=== PATIENT | male | born 1965 | race Two or more races ===

== ENCOUNTER 2024-06-08 14:23 | Emergency (ER) | payer OTHER ==
[~2024-06-08] VITALS: Ht 167.6 cm; Wt 77.1 kg
[2024-06-08] MEDS ORDERED: METFORMIN HCL500 M3 PO (14:31)
[2024-06-08] MEDS ORDERED: RINGERS SOLUTION,LACTATED 1,000 ML IV STA (17:53)
[2024-06-08] MEDS ORDERED: METOCLOPRAMIDE HCL 5 MG/ML VIAL IM STA ×2 (17:54→20:39)
[2024-06-08] MEDS ORDERED: MECLIZINE HCL 25 MG TABLET PO STA (17:55)
[2024-06-08] MEDS ORDERED: INSULIN REGULAR, HUMAN 1,000 UNIT/10 ML UNITS IV STA (17:56)
[2024-06-08] MEDS ORDERED: INSULIN REGULAR, HUMAN 1,000 UNIT/10 ML UNITS SUBCUTANEO STA ×3 (17:56→20:39)
[2024-06-08] MEDS ORDERED: METOCLOPRAMIDE HCL 5 MG/ML VIAL ONE ×2 (18:01→21:16)
[2024-06-08] MEDS ORDERED: MECLIZINE HCL 25 MG TABLET PO ONE (18:01)
[2024-06-08] MEDS ORDERED: INSULIN NPH HUMAN ISOPHANE 1,000 UNITS/10 ML UNITS SUBCUTANEO ONE (18:03)
[2024-06-08 18:27] LABS: HEMATOCRIT 46.2 % (39.0-48.0); HEMOGLOBIN 16.4 g/dL (13-16.00); MEAN CELL VOLUME 81.8 fL (80.0-100.00); MEAN CORPUSCULAR HGB CONC 35.5 g/dl (32.0-36.0); PLATELET COUNT 266 K/uL (150-450); RED BLOOD COUNT 5.65 M/uL (4.00-6.00)
[2024-06-08 18:45] LABS: ALBUMIN 3.8 gm/dL (3.4-5.0); BILIRUBIN TOTAL 0.58 mg/dL (0.3-1.2); CALCIUM 9.2 mg/dL (8.5-10.1); CREATININE SERUM 1.11 mg/dL (0.70-1.30); GFR 68.04; POTASSIUM 4.2 mEq/L (3.5-5.1)
[2024-06-08 18:48] LABS: proBNP 24 pg/mL (0-56.7)
[2024-06-08 18:54] LABS: TROPONIN I hs < 3.0 PG/ML (42.2-82.3)
[2024-06-08 19:04] LABS: INR 1.02; PARTIAL THROMBOPLASTIN TIME 27.5 SECONDS (22.0-34.0); PROTHROMBIN TIME 10.7 SECONDS (9.0-11.5)
[2024-06-08 19:08] LABS: GLOBULINA 5.7 G/DL (2.4-3.5); TOTAL PROTEIN 9.5 gm/dL (6.4-8.2)
[2024-06-08 19:17] LABS: URINE APPEARANCE Clear; URINE BILIRRUBIN Negative (NEGATIVE); URINE BLOOD Negative; URINE COLOR Yellow; URINE LEUKOCYTE Negative; URINE NITRATE Negative; URINE PROTEIN Negative (NEGATIVE); URINE UROBILINOGEN 0.2 E.U./dl
[2024-06-08 19:21] LABS: URINE BACTERIA 7.5 uL (0.0-1933); URINE EPITHELIAL CELLS 1.5 uL (0.0-38.8)
[2024-06-08 19:34] LABS: URINE GLUCOSE >=1000 MG/DL (NEGATIVE); URINE RBC 1.9 uL (0.0-20.8); URINE WBC 1.6 uL (0.0-23.2)
[2024-06-08] MEDS ORDERED: KETOROLAC TROMETHAMINE 30 MG VIAL IV STA (20:40)
[2024-06-08] MEDS ORDERED: KETOROLAC TROMETHAMINE 30 MG VIAL ONE (21:16)
== END 2024-06-09 00:19 | disposition home or self-care (01) ==
LOC: ER 14:24
DX: E11.65 Type 2 diabetes mellitus with hyperglycemia (principal); Z79.84 Long term (current) use of oral hypoglycemic drugs